=== PATIENT | female | born 1945 | race Caucasian/White ===

== ENCOUNTER → 2023-03-12 | Outpatient (CLI) | payer OTHER | END | disposition home or self-care (01) | LOC: OIH 10:06 | PROVIDERS: ATTEND Internal Medicine Cardiovascular Disease | DX: Z13.6 Encounter for screening for cardiovascular disorders (principal) | CPT/HCPCS: 75571 ==

== ENCOUNTER → 2025-02-10 | Outpatient (CLI) | payer MEDICARE ==
[~2025-02-10] MED LIST: GADOTERATE MEGLUMINE 5 MMOL/10 ML VIAL IV ONE
--- NOTE | 2025-02-10 23:08 | HMCIMG ---
EXAM: MRI Thoracic Spine with and without Contrast Clinical Indication: Thoracic radiculopathy. Technique: Multiplanar, multisequence MRI of the thoracic spine was performed before and after intravenous contrast administration. Contrast Administered: Standard dose of intravenous gadolinium-based contrast. Comparison: No prior thoracic spine imaging available.FINDINGS: Vertebral Bodies: There are anterior and posterior marginal osteophytes throughout the thoracic spine. Modic type II endplate changes are present at multiple levels. Schmorls nodes are visualized at several levels. Vertebral body height and marrow signal intensity are preserved. Intervertebral Discs: At L1L2, there is a small central disc protrusion resulting in grade I central canal narrowing. The remaining thoracic intervertebral discs demonstrate normal height and signal intensity without abnormal disc protrusions. Facet Joints and Costovertebral Joints: Multilevel costovertebral and costotransverse degenerative changes are noted without evidence of ganglion cyst formation. Spinal Canal and Neural Foramina: Grade I central canal narrowing at L1L2 as noted. No significant neural foraminal narrowing or nerve root impingement is present throughout the thoracic spine. Spinal Cord: The thoracic spinal cord demonstrates normal caliber and signal intensity. No abnormal enhancement is identified post-contrast. Soft Tissues and Mediastinum: The thyroid gland is enlarged and heterogeneous with multiple nodules involving both lobes. A moderate-sized hiatal hernia is present. No pleural effusions are identified. Bibasilar dependent atelectasis is present. Post-Contrast Findings: No abnormal enhancement of the thoracic vertebrae or spinal cord. Mild enhancement of the T12L1 endplates likely corresponds to degenerative Modic changes without associated soft tissue mass.IMPRESSION: * Multilevel degenerative changes in the thoracic spine including anterior and posterior marginal osteophytes, Modic type II endplate changes, and Schmorls nodes. Mild T12L1 endplate enhancement likely representing degenerative Modic changes without soft tissue abnormality. * Small central disc protrusion at L1L2 resulting in grade I central canal narrowing without neural foraminal compromise or nerve root impingement. 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 * Thoracic spinal cord is unremarkable with no abnormal post-contrast enhancement. * Enlarged heterogeneous thyroid gland with multiple bilateral nodules. Recommend non-emergent sonographic follow up. * Moderate hiatal hernia. * Bibasilar dependent atelectasis; no pleural effusion. /[place]
== END | disposition home or self-care (01) ==
LOC: RAH 14:29
PROVIDERS: ATTEND Neurological Surgery
DX: M51.14 Intervertebral disc disorders with radiculopathy, thoracic region (principal); E04.2 Nontoxic multinodular goiter; K44.9 Diaphragmatic hernia without obstruction or gangrene; M48.14 Ankylosing hyperostosis [Forestier], thoracic region; M47.814 Spondylosis without myelopathy or radiculopathy, thoracic region; J98.11 Atelectasis; M48.061 Spinal stenosis, lumbar region without neurogenic claudication
CPT/HCPCS: 72157; A9575